=== PATIENT | female | born 1960 | race Caucasian/White ===

== ENCOUNTER → 2024-04-02 06:53 | Outpatient (REF) | payer OTHER, SELFPAY ==
[2024-04-02 10:06] LABS: % Basophils 0.5 % (0-2); % Eosinophils 1.6 % (0-6); % Immature Granulocytes 0.3 % (0-0.5); % Lymphocytes 24.7 % (20.5-51.1); % Monocytes 8.8 % (1.7-9.3); % Neutrophils 64.1 % (42.2-75.2); Absolute Eosinophils 0.1 10^3/uL (0-0.7); Absolute Lymphocytes 1.4 10^3/uL (1.2-3.4); Absolute Monocytes 0.5 10^3/uL (0.1-0.6); Absolute Neutrophils 3.7 10^3/uL (1.4-6.5); Hematocrit 38.1 % (37.0-47.0); Hemoglobin 12.5 g/dL (12.0-16.0); Mean Corp Hgb Conc. 32.8 g/dL (33.0-37.0); Mean Corpuscular Hgb 29.8 pg (27.0-31.0); Mean Corpuscular Volume 90.7 fL (81.0-99.0); Mean Platelet Volume 10.1 fL (7.4-10.4); Nucleated Red Blood Cells % 0 %; Platelet Count 254 10^3/uL (130-400); Red Cell Dist. Width 14.1 % (11.5-14.5); White Blood Cell Count 5.8 10^3/uL (4.8-10.8)
[2024-04-02 11:05] LABS: ALT (SGPT) 30 U/L (0-35); AST (SGOT) 31 U/L (14-36); Albumin 4.3 g/dl (3.5-5.0); Alkaline Phosphatase 70 U/L (38-126); Blood Urea Nitrogen 14 mg/dl (7-17); Calcium 9.7 mg/dl (8.4-10.2); Carbon Dioxide 29 mmol/L (22-30); Chloride 105 mmol/L (98-107); Glucose 93 mg/dl (70-99); HDL Cholesterol 72 mg/dl; LDL Cholesterol, Calculated 76 mg/dl; Potassium 4.1 mmol/L (3.5-5.1); Sodium 136 mmol/L (135-145); Total Bilirubin 0.7 mg/dl (0.2-1.3); Total Cholesterol 165 mg/dl (50-199); Total Protein 6.9 g/dl (6.3-8.2); Triglyceride 87 mg/dl (10-149); Very Low Density Lipoprotein 17 mg/dl (0-30); eGFR > 60.00
[2024-04-02 11:21] LABS: Vitamin D, 25-OH*** 33.7 ng/mL (30-80)
[2024-04-02 11:35] LABS: TSH 4.79 uIU/ml (0.47-4.68)
== END ==
LOC: HWLAB 06:53
PROVIDERS: ATTENDING PHYSICIAN Nurse Practitioner
DX: Z00.00 Encounter for general adult medical examination without abnormal findings (principal); E03.9 Hypothyroidism, unspecified
CPT/HCPCS: 36415; 80053; 80061; 82306; 84443; 85025

== ENCOUNTER → 2024-05-28 14:24 | Outpatient (REF) | payer OTHER, SELFPAY | LOC: HWRAD 14:24 | PROVIDERS: ATTENDING PHYSICIAN Nurse Practitioner | DX: Z12.31 Encounter for screening mammogram for malignant neoplasm of breast (principal); M85.80 Other specified disorders of bone density and structure, unspecified site | CPT/HCPCS: 77063; 77067; 77080 ==

== ENCOUNTER → 2024-07-03 07:52 | Outpatient (REF) | payer OTHER, SELFPAY ==
[2024-07-03 10:01] LABS: Erythrocyte Sed Rate 8 mm/hour (0-20)
[2024-07-03 10:06] LABS: Magnesium 2.1 mg/dl (1.6-2.3); Potassium 4.2 mmol/L (3.5-5.1)
[2024-07-03 10:09] LABS: C-Reactive Protein < 5.00 mg/L (0.0-10.00)
== END ==
LOC: HWLAB 07:52
PROVIDERS: ATTENDING PHYSICIAN Nurse Practitioner
DX: M79.10 Myalgia, unspecified site (principal); E03.9 Hypothyroidism, unspecified
CPT/HCPCS: 36415; 83735; 84132; 84443; 85652; 86140; 86430

== ENCOUNTER → 2024-07-10 06:29 | Day surgery (SDC) | payer OTHER, SELFPAY | LOC: GI 06:29 | PROVIDERS: ATTENDING PHYSICIAN Internal Medicine Gastroenterology | DX: Z12.11 Encounter for screening for malignant neoplasm of colon (principal); K62.5 Hemorrhage of anus and rectum; K64.8 Other hemorrhoids; K57.30 Diverticulosis of large intestine without perforation or abscess without bleeding; R68.81 Early satiety; K31.89 Other diseases of stomach and duodenum; R11.0 Nausea; K29.50 Unspecified chronic gastritis without bleeding; K64.4 Residual hemorrhoidal skin tags; Z86.010 Personal history of colon polyps | CPT/HCPCS: 43239; G0105; 88305; 88342 ==

== ENCOUNTER → 2024-07-21 11:59 | Outpatient (REF) | payer OTHER, SELFPAY ==
[2024-07-22 14:35] LABS: tTG IgA Antibody 4.5 EU/ml (0-19); tTG IgG Antibody 9.8 EU/ml (0-19)
[2024-07-22 23:09] LABS: IgA 176 mg/dl (70-400)
== END ==
LOC: HWLAB 11:59
PROVIDERS: ATTENDING PHYSICIAN Internal Medicine Gastroenterology; FAMILY PHYSICIAN Nurse Practitioner
DX: K31.9 Disease of stomach and duodenum, unspecified (principal)
CPT/HCPCS: 36415; 82784; 83516; 86231

== ENCOUNTER → 2024-08-20 06:35 | Outpatient (REF) | payer OTHER, SELFPAY ==
[2024-08-20 11:11] LABS: TSH 0.54 uIU/ml (0.47-4.68)
== END ==
LOC: HWLAB 06:35
PROVIDERS: ATTENDING PHYSICIAN Nurse Practitioner
DX: R79.89 Other specified abnormal findings of blood chemistry (principal); E03.9 Hypothyroidism, unspecified
CPT/HCPCS: 36415; 84443

== ENCOUNTER → 2025-02-19 06:43 | Outpatient (REF) | payer OTHER, SELFPAY ==
[2025-02-19 10:18] LABS: % Basophils 0.5 % (0-2); % Eosinophils 2.4 % (0-6); % Immature Granulocytes 0.2 % (0-0.5); % Lymphocytes 34.9 % (20.5-51.1); % Monocytes 7.4 % (1.7-9.3); % Neutrophils 54.6 % (42.2-75.2); Absolute Eosinophils 0.1 10^3/uL (0-0.7); Absolute Lymphocytes 1.5 10^3/uL (1.2-3.4); Absolute Monocytes 0.3 10^3/uL (0.1-0.6); Absolute Neutrophils 2.3 10^3/uL (1.4-6.5); Hemoglobin 12.4 g/dL (12.0-16.0); Mean Corp Hgb Conc. 31.8 g/dL (33.0-37.0); Mean Corpuscular Hgb 29.1 pg (27.0-31.0); Mean Corpuscular Volume 91.5 fL (81.0-99.0); Mean Platelet Volume 9.6 fL (7.4-10.4); Nucleated Red Blood Cells % 0 %; Platelet Count 280 10^3/uL (130-400); Red Blood Cell Count 4.26 10^6/uL (4.20-5.40); Red Cell Dist. Width 14.6 % (11.5-14.5); White Blood Cell Count 4.2 10^3/uL (4.8-10.8)
[2025-02-19 12:08] LABS: ALT (SGPT) 19 U/L (0-35); AST (SGOT) 26 U/L (14-36); Albumin 4.5 g/dl (3.5-5.0); Alkaline Phosphatase 65 U/L (38-126); Blood Urea Nitrogen 16 mg/dl (7-17); Calcium 9.8 mg/dl (8.4-10.2); Carbon Dioxide 27 mmol/L (22-30); Chloride 104 mmol/L (98-107); Glucose 89 mg/dl (70-99); Potassium 4.4 mmol/L (3.5-5.1); Sodium 138 mmol/L (135-145); eGFR > 60.00
== END ==
LOC: HWLAB 06:43
DX: R10.9 Unspecified abdominal pain (principal); R35.0 Frequency of micturition; R30.0 Dysuria
CPT/HCPCS: 36415; 80053; 85025

== ENCOUNTER → 2025-02-26 07:33 | Outpatient (REF) | payer OTHER, SELFPAY | LOC: RAD 07:33 | DX: R10.9 Unspecified abdominal pain (principal); R35.0 Frequency of micturition; R30.0 Dysuria | CPT/HCPCS: 74177; Q9967 ==

== ENCOUNTER → 2025-05-18 07:48 | Outpatient (REF) | payer OTHER, SELFPAY ==
[2025-05-18 09:39] LABS: % Basophils 0.7 % (0-2); % Eosinophils 3.1 % (0-6); % Immature Granulocytes 0.2 % (0-0.5); % Lymphocytes 32.2 % (20.5-51.1); % Monocytes 7.8 % (1.7-9.3); Absolute Eosinophils 0.1 10^3/uL (0-0.7); Absolute Lymphocytes 1.4 10^3/uL (1.2-3.4); Absolute Monocytes 0.3 10^3/uL (0.1-0.6); Absolute Neutrophils 2.4 10^3/uL (1.4-6.5); Hematocrit 37.8 % (37.0-47.0); Hemoglobin 12.3 g/dL (12.0-16.0); Mean Corp Hgb Conc. 32.5 g/dL (33.0-37.0); Mean Corpuscular Hgb 29.8 pg (27.0-31.0); Mean Corpuscular Volume 91.5 fL (81.0-99.0); Mean Platelet Volume 10.5 fL (7.4-10.4); Nucleated Red Blood Cells % 0 %; Platelet Count 245 10^3/uL (130-400); Red Blood Cell Count 4.13 10^6/uL (4.20-5.40); Red Cell Dist. Width 13.8 % (11.5-14.5); White Blood Cell Count 4.2 10^3/uL (4.8-10.8)
[2025-05-18 09:43] LABS: ALT (SGPT) 19 U/L (0-35); AST (SGOT) 25 U/L (14-36); Albumin 4.2 g/dl (3.5-5.0); Alkaline Phosphatase 48 U/L (38-126); Blood Urea Nitrogen 10 mg/dl (7-17); Calcium 9.8 mg/dl (8.4-10.2); Carbon Dioxide 28 mmol/L (22-30); Chloride 111 mmol/L (98-107); Glucose 94 mg/dl (70-99); HDL Cholesterol 64 mg/dl; LDL Cholesterol, Calculated 126 mg/dl; Potassium 4.3 mmol/L (3.5-5.1); Sodium 143 mmol/L (135-145); Total Bilirubin 0.7 mg/dl (0.2-1.3); Total Cholesterol 204 mg/dl (50-199); Total Protein 6.7 g/dl (6.3-8.2); Triglyceride 73 mg/dl (10-149); Very Low Density Lipoprotein 14 mg/dl (0-30); eGFR > 60.00
[2025-05-18 10:02] LABS: Free T3 2.99 pg/ml (2.77-5.27); Free T4 1.25 ng/dl (0.78-2.19); Vitamin D, 25-OH*** 36.4 ng/mL (30-80)
[2025-05-18 10:15] LABS: TSH 0.54 uIU/ml (0.47-4.68)
== END ==
LOC: HWLAB 07:48
DX: E06.3 Autoimmune thyroiditis (principal); E55.9 Vitamin D deficiency, unspecified; Z00.01 Encounter for general adult medical examination with abnormal findings
CPT/HCPCS: 36415; 80053; 80061; 82306; 84439; 84443; 84481; 85025

== ENCOUNTER → 2025-09-03 07:29 | Outpatient (REF) | payer OTHER, SELFPAY ==
[2025-09-03 10:09] LABS: Hematocrit 37.8 % (37.0-47.0); Hemoglobin 12.2 g/dL (12.0-16.0); Mean Corp Hgb Conc. 32.3 g/dL (33.0-37.0); Mean Corpuscular Volume 92.6 fL (81.0-99.0); Nucleated Red Blood Cells % 0 %; Platelet Count 273 10^3/uL (130-400); Red Cell Dist. Width 13.8 % (11.5-14.5)
[2025-09-03 10:29] LABS: ALT (SGPT) 17 U/L (0-35); AST (SGOT) 22 U/L (14-36); Albumin 4.2 g/dl (3.5-5.0); Alkaline Phosphatase 52 U/L (38-126); Blood Urea Nitrogen 13 mg/dl (7-17); Calcium 9.4 mg/dl (8.4-10.2); Carbon Dioxide 28 mmol/L (22-30); Chloride 108 mmol/L (98-107); Glucose 94 mg/dl (70-99); HDL Cholesterol 67 mg/dl; LDL Cholesterol, Calculated 145 mg/dl; Potassium 4.0 mmol/L (3.5-5.1); Sodium 141 mmol/L (135-145); Total Protein 6.7 g/dl (6.3-8.2); Very Low Density Lipoprotein 18 mg/dl (0-30); eGFR > 60.00
== END ==
LOC: HWLAB 07:29
DX: E78.2 Mixed hyperlipidemia (principal); D72.829 Elevated white blood cell count, unspecified
CPT/HCPCS: 36415; 80053; 80061; 85025